=== PATIENT | male | born 1960 | race Caucasian/White ===

== ENCOUNTER 2016-11-11 16:56 | Emergency (ER) | payer OTHER ==
[2016-11-11 17:05] VITALS: BP 121/84
--- NOTE | 2016-11-11 18:05 | UC ---
Cardiac HPI - HPI Summary HPI Summary: pulling in right lateral ribs when reaching at work a few days ago--has continued pain---wants to be sure everything is ok - History of Current Complaint Chief Complaint: UCUpperExtremity Stated Complaint: RIB INJURY Time Seen by Provider: 11/11/16 18:03 Hx Obtained From: Patient Onset/Duration: Sudden Onset, Lasting Days - 5, Still Present Timing: Constant Initial Severity: Moderate Current Severity: Moderate Chest Pain Location: Right Lateral Aggravating: Exertion, Position Alleviating: Rest, OTC Meds Associated Signs & Symptoms: Positive: Negative - Allergy/Home Medications Allergies/Adverse Reactions: Allergies Allergy/AdvReac Type Severity Reaction Status Date / Time No Known Allergies Allergy Verified 11/11/16 17:05 Home Medications: Home Medications NK [No Home Medications Reported] 11/11/16 [History Confirmed 11/11/16] PMH/Surg Hx/FS Hx/Imm Hx Previously Healthy: Yes - Surgical History Surgical History: Yes Surgery Procedure, Year, and Place: appy,hernia - Family History Known Family History: Positive: None Family History: no cardio vascular issues reported in family lineage - Social History Occupation: Employed Full-time Lives: With Family Alcohol Use: None Substance Use Type: None Substance Use Comment - Amount & Last Used: drinks 3 cups of coffee daily Smoking Status (MU): Former Smoker Review of Systems Constitutional: Negative Skin: Negative Eyes: Negative ENT: Negative Respiratory: Negative Cardiovascular: Negative Gastrointestinal: Negative Genitourinary: Negative Motor: Negative Neurovascular: Negative Musculoskeletal: Arthralgia - right lateral ribs Neurological: Negative Psychological: Negative All Other Systems Reviewed And Are Negative: Yes Physical Exam Triage Information Reviewed: Yes Appearance: Well-Appearing, No Pain Distress, Well-Nourished Vital Signs: Initial Vital Signs Temp 97.9 F 11/11/16 17:04 Pulse 81 11/11/16 17:04 Resp 16 11/11/16 17:04 BP 121/84 11/11/16 17:04 Pulse Ox 97 11/11/16 17:04 Vital Signs Reviewed: Yes Eye Exam: Normal Eyes: Positive: Conjunctiva Clear ENT Exam: Normal ENT: Positive: Normal ENT inspection, Hearing grossly normal. Negative: Nasal congestion, Nasal drainage, Trismus, Muffled/hoarse voice Dental Exam: Normal Neck exam: Normal Neck: Positive: Supple, Nontender, No Lymphadenopathy Respiratory Exam: Normal Respiratory: Positive: Chest non-tender, No respiratory distress, No accessory muscle use Cardiovascular Exam: Normal Cardiovascular: Positive: RRR, No Murmur, Pulses Normal, Brisk Capillary Refill Abdominal Exam: Normal Abdomen Description: Positive: Nontender, No Organomegaly, Soft. Negative: CVA Tenderness (R), CVA Tenderness (L), Hepatomegaly Bowel Sounds: Positive: Present Musculoskeletal Exam: Normal Musculoskeletal: Positive: Strength Intact, ROM Intact, No Edema Neurological Exam: Normal Neurological: Positive: Alert Psychological Exam: Normal Skin Exam: Normal Diagnostics - Radiology No standard instances Xray Interpretation: No Acute Changes Radiology Interpretation Completed By: Radiologist - Assessment/Plan Course Of Treatment: ice, limit lifting, pain med, follow with pcp - Differential Diagnoses - Chest Pain Differential Diagnosis/HQI/PQRI: Chest Wall - Clinical Impression Provider Diagnoses: Chest wall pain, muscle strain Discharge - Discharge Plan Condition: Stable Disposition: HOME Patient Education Materials: Ibuprofen (By mouth), Ice Pack Application (ED), Rib Contusion (ED) Forms: *Work Release Referrals: Kirstin Pretty MD [Primary Care Provider] - If Needed
--- NOTE | 2016-11-11 18:42 | RAD ---
INDICATION: Right rib injury. TECHNIQUE: 4 views of the right ribs and dual-energy PA views of the chest were obtained. FINDINGS: No fracture or significant focal osseous abnormality is seen. The heart is within normal limits in size. The lungs are clear. There is no evidence for pneumothorax or pleural effusion. IMPRESSION: NO EVIDENCE FOR FRACTURE.
== END 2016-11-11 19:06 | disposition home or self-care (01) ==
LOC: UCEAST 16:56
DX: S29.011A Strain of muscle and tendon of front wall of thorax, initial encounter (principal); X50.1XXA Overexertion from prolonged static or awkward postures, initial encounter; Y93.9 Activity, unspecified; Y92.89 Other specified places as the place of occurrence of the external cause; Y99.0 Civilian activity done for income or pay; R07.89 Other chest pain; Z87.891 Personal history of nicotine dependence
CPT/HCPCS: 99211; G0463

== ENCOUNTER 2018-09-25 12:46 | Emergency (ER) | payer OTHER ==
--- NOTE | 2018-09-25 13:48 | ED ---
HPI Chest Pain - HPI Summary HPI Summary: This patient is a 58 year old M presenting to [facility] accompanied by his with a chief complaint of intermittent aching CP since 1 day ago. The patient rates the pain 0/10 in severity. Symptoms aggravated by nothing. Symptoms alleviated by nothing. Patient reports lightheadedness, nausea, SOB with exertion, and fatigue. The patient reports that he exercises 6 times per week and SOB with exertion is out of the ordinary for him. Patient takes Metformin and Lipitor daily. - History of Current Complaint Chief Complaint: EDChestPainROMI Time Seen by Provider: 09/25/18 13:39 Hx Obtained From: Patient Onset/Duration: Started Days Ago - 1 day, Atraumatic, Still Present Timing: Intermittent, Lasting Days - 1 day Initial Severity: Mild Current Severity: None Pain Intensity: 0 Pain Scale Used: 0-10 Numeric Chest Pain Radiates: No Character: Dull/Aching Aggravating Factor(s): Nothing Alleviating Factor(s): Nothing Associated Signs and Symptoms: Positive: Chest Pain, Shortness of Breath, Lightheadedness, Nausea, Other: - fatigue - Allergy/Home Medications Allergies/Adverse Reactions: Allergies Allergy/AdvReac Type Severity Reaction Status Date / Time No Known Allergies Allergy Verified 09/25/18 12:48 Home Medications: Home Medications Atorvastatin* [Lipitor*] 40 mg PO QPM 09/25/18 [History Confirmed 09/25/18] Metformin ER (NF) [Glucophage ER 750 MG TAB (NF)] 750 mg PO DAILY 09/25/18 [ History Confirmed 09/25/18] PMH/Surg Hx/FS Hx/Imm Hx Opthamlomology History: Denies: Hx Legally Blind EENT History: Denies: Hx Deafness - Surgical History Surgery Procedure, Year, and Place: appy,hernia Infectious Disease History: No Infectious Disease History: Denies: Hx Clostridium Difficile, Hx Hepatitis, Hx Human Immunodeficiency Virus (HIV), Hx of Known/Suspected MRSA, Hx Shingles, Hx Tuberculosis, Hx Known/ Suspected VRE, Hx Known/Suspected VRSA, History Other Infectious Disease, Traveled Outside the [place] in Last 30 Days - Family History Known Family History: Positive: Other - "heart issues" (father), pancreatic CA ( mother) Negative: Blood Disorder Family History: no cardio vascular issues reported in family lineage - Social History Alcohol Use: None Substance Use Type: Reports: None Substance Use Comment - Amount & Last Used: drinks 3 cups of coffee daily Smoking Status (MU): Former Smoker Review of Systems Positive: Fatigue Positive: Chest Pain Positive: Shortness Of Breath Positive: Nausea Neurological: Other - lightheadedness All Other Systems Reviewed And Are Negative: Yes Physical Exam - Summary Physical Exam Summary: Appearance: The patient is well-nourished in no acute distress and in no acute pain. Skin: The skin is warm and dry and skin color reflects adequate perfusion. HEENT: The head is normocephalic and atraumatic. The pupils are equal and reactive. The conjunctivae are clear and without drainage. Nares are patent and without drainage. Mouth reveals moist mucous membranes and the throat is without erythema and exudate. The external ears are intact. The ear canals are patent and without drainage. The tympanic membranes are intact. Neck: The neck is supple with full range of motion and non-tender. There are no carotid bruits. There is no neck vein distension. Respiratory: Chest is non-tender. Lungs are clear to auscultation and breath sounds are symmetrical and equal. Cardiovascular: Heart is regular rate and rhythm. There is no murmur or rub auscultated. There is no peripheral edema and pulses are symmetrical and equal. Abdomen: The abdomen is soft and non-tender. There are normal bowel sounds heard in all four quadrants and there is no organomegaly palpated. Musculoskeletal: There is no back tenderness noted. Extremities are non-tender with full range of motion. There is good capillary refill. There is no peripheral edema or calf tenderness elicited. Neurological: Patient is alert and oriented to person, place and time. The patient has symmetrical motor strength in all four extremities. Cranial nerves are grossly intact. Deep tendon reflexes are symmetrical and equal in all four extremities. Psychiatric: The patient has an appropriate affect and does not exhibit any anxiety or depression. Triage Information Reviewed: Yes Vital Signs On Initial Exam: Initial Vitals Temp Pulse Resp BP Pulse Ox 96.6 F 63 14 136/69 97 09/25/18 12:48 09/25/18 12:48 09/25/18 12:48 09/25/18 12:48 09/25/18 12:48 Vital Signs Reviewed: Yes Diagnostics - Vital Signs Vital Signs Temp Pulse Resp BP Pulse Ox 04/21/19 12:48 96.6 F 63 14 136/69 97 - Laboratory Result Diagrams: 09/25/18 14:02 09/25/18 14:02 Lab Statement: Any lab studies that have been ordered have been reviewed, and results considered in the medical decision making process. - Radiology CXR Radiology Interpretation Completed By: Radiologist Summary of Radiographic Findings: No active cardiopulmonary disease. Dr. Franklin has reviewed this report. - EKG 12:56 Cardiac Rate: NL - at 61 bpm EKG Rhythm: Sinus Rhythm Summary of EKG Findings: sinus rhythm at 61 bpm Chest Pain Course/Dx - Course Course Of Treatment: Mr. Hammer presents complaining of an intermittent right- sided chest pain for about the last day or so. He has a pretty active life. He exercises frequently and his job involves lifting heavy boxes fairly frequently. He has not noticed a correlation between his physical activity and the chest pain however he did notice an episode of climbing up the stairs and feeling short of breath. He climbs up a lot of stairs at work and normally does not feel short of breath. He was nontoxic in appearance with stable vital signs on presentation. He was kept on a monitor and evaluated with a delayed troponin and d-dimer as well as EKG and chest x-ray. Everything was negative. We talked about the unknown etiology of his symptoms and the fact that nothing acutely dangerous is happening at this time however that does not rule out the possibility that this is a cardiac event. I recommended that he take it easy and that if he has symptoms recur with exertion that he should stop immediately and return to the emergency department. Otherwise he is to follow-up with his PCP Dr. Pretty this week. - Diagnoses Provider Diagnoses: Chest pain Discharge - Sign-Out/Discharge Documenting (check all that apply): Patient Departure - discharge home Patient Received Moderate/Deep Sedation with Procedure: No - Discharge Plan Condition: Stable Disposition: HOME Patient Education Materials: Chest Pain (ED) Referrals: Kirstin Pretty MD [Primary Care Provider] - 1 Day Additional Instructions: Follow up with your primary care physician in 1-2 days. Return to the emergency with any new or worsening symptoms. - Billing Disposition and Condition Condition: STABLE Disposition: Home - Attestation Statements Document Initiated by Scribe: Yes Documenting Scribe: Megha [place] Provider For Whom Scribe is Documenting (Include Credential): Eyal Franklin MD Scribe Attestation: I, Megha Merino, scribed for Eyal Franklin MD on 09/25/18 at 1759. Scribe Documentation Reviewed: Yes Provider Attestation: The documentation as recorded by the scribe, Megha Merino accurately reflects the service I personally performed and the decisions made by me, Eyal Franklin MD Status of Scribe Document: Viewed
[2018-09-25 14:10] LABS: ABS Basophils 0.1 10^3/ul (0-0.2); ABS Eosinophils 0.5 10^3/ul (0-0.6); ABS Lymphocytes 2.1 10^3/ul (1.0-4.8); ABS Monocytes 0.6 10^3/ul (0-0.8); ABS Neutrophils 3.5 10^3/ul (1.5-7.7); ABS Nucleated RBC 0 10^3/ul; Eosinophil % 7.5 %; Hematocrit 43 % (36-46); Hemoglobin 14.4 g/dL (14.0-18.0); Lymphocyte % 30.8 %; Mean Corpuscular HGB Conc 34 g/dL (31-36); Mean Corpuscular Hemoglobin 32 pg (27-31); Mean Corpuscular Volume 95 fL (80-94); Mean Platelet Volume 7.7 fL (7.4-10.4); Nucleated Red Blood Cells % 0.1; Platelet Count 267 10^3/uL (150-450); Red Blood Count 4.49 10^6 /uL (4.18-5.48); Red Cell Distribution Width 13 % (10.5-15); White Blood Count 6.8 10^3/uL (3.5-10.8)
[2018-09-25 14:17] LABS: INR 0.94 (0.77-1.02)
[2018-09-25 14:26] LABS: Albumin 3.9 g/dL (3.2-5.2); Albumin/Globulin Ratio 1.3 (1-3); BUN/Creatinine Ratio 18.3 (8-20); Calcium 9.4 mg/dL (8.6-10.3); EGFR African American 100.3 (>60); EGFR Non-African American 82.9 (>60); Total Bilirubin 0.5 mg/dL (0.2-1.0); Total Protein 6.9 g/dL (6.4-8.9)
[2018-09-25 15:06] LABS: Potassium 4.1 mmol/L (3.5-5.0)
[2018-09-25 15:35] LABS: TSH (Thyroid Stimulating Horm) 1.2 mcIU/mL (0.34-5.60)
[2018-09-25 17:58] VITALS: BP 109/63
== END 2018-09-25 17:58 | disposition home or self-care (01) ==
LOC: ED 12:46
DX: R07.9 Chest pain, unspecified (principal); Z87.891 Personal history of nicotine dependence
CPT/HCPCS: 36415; 71045; 80053; 83605; 83880; 84443; 84484; 85025; 85379; 85610; 93005; 99283

== ENCOUNTER 2019-05-13 14:48 | Emergency (ER) | payer OTHER ==
--- OUTSIDE RECORDS SUMMARY | 2019-05-13 14:54 | XMS REPORT | Continuity of Care Document ---
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 stairs daily for job. Allergies, Adverse Reactions, Alerts Description No Known Drug Allergies Medications Active Medications SIG Qnty Indications Ordering Provider Date Freestyle [place] test 2 times 1units Isaiah Joshua MD 08/22/2018 Lite daily dx:e11.9 W/Device Kit Freestyle Lite Test test blood 100units Isaiah Joshua MD 08/22/2018 sugar 3 times Strips daily and as needed Metformin HCL ER hold on file, 90tabs R73.03 Isaiah Joshua MD 08/17/2018 750mg take 1 tablet Tablets ER 24HR by mouth daily Accucheck Lancets R73.03 Isaiah Joshua MD 08/17/2018 Lancet Device once daily 50units R73.03 Isaiah Joshua MD 08/17/2018 Misc Atorvastatin Calcium 1 by mouth Unknown every day 40mg Tablets Multivitamin Men take 1 tablet Unknown by mouth one Tablets time a day Vitamin C Immune 1 daily Unknown Health 500mg Chewtabs Immunizations Description No Information Available Vital Signs Date Vital Result Comment 05/10/2019 4:13pm Height 69 inches 5'9" Weight 162.00 lb w/ shoes Heart Rate 78 /min BP Systolic Sitting 110 mmHg BP Diastolic Sitting 68 mmHg BMI (Body Mass Index) 23.9 kg/m2 08/17/2018 4:14pm Height 69 inches 5'9" Weight 165.00 lb w/ shoes Heart Rate 70 /min BP Systolic Sitting 109 mmHg BP Diastolic Sitting 61 mmHg BMI (Body Mass Index) 24.4 kg/m2 Results Description No Information Available Procedures Description No Information Available Medical Devices Description No Information Available Encounters Description No Information Available Assessments Date Code Description Provider 05/10/2019 R73.03 Prediabetes Isaiah Joshua MD 05/10/2019 E78.5 Hyperlipidemia, unspecified Isaiah Joshua MD Plan of Treatment No Information Available Functional Status Description No Information Available Mental Status Description No Information Available Referrals Description No Information Available
[2019-05-13 15:32] VITALS: BP 114/72
--- NOTE | 2019-05-13 16:39 | UC ---
Back Pain HPI - HPI Summary HPI Summary: 6 DAYS AGO PATIENT BENT OVER TO [employer]ACK[employer] HIS SMALL DOG. THE DOG MOVED AND WHEN THE PATIENT LUNGED AFTER HIM HE STRAINED HIS LOW BACK. HE HAS CONTINUED TO WORK AND HAS A PHYSICALLY DEMANDING JOB. THE PAIN HAS BEEN PERSISTENT. IBUPROFEN HELPS. HE DENIES ANY NUMBNESS/TINGLING. NO SADDLE ANESTHESIA. NO LOSS OF BOWEL OR BLADDER CONTROL. - History of Current Complaint Chief Complaint: UCBackPain Stated Complaint: BACK PAIN Time Seen by Provider: 05/13/19 16:10 Hx Obtained From: Patient Onset/Duration: Sudden Onset, Lasting Days, Still Present Timing: Constant Severity Initially: Moderate Severity Currently: Moderate Pain Intensity: 5 Pain Scale Used: 0-10 Numeric Back Pain: Is Discrete @ - LOW BACK Character: Sharp Aggravating Factor(s): Movement Alleviating Factor(s): Rest, OTC Meds - IBUPROFEN Associated Signs And Symptoms: Positive: Negative - Allergies/Home Medications Allergies/Adverse Reactions: Allergies Allergy/AdvReac Type Severity Reaction Status Date / Time No Known Allergies Allergy Verified 05/13/19 15:32 PMH/Surg Hx/FS Hx/Imm Hx Endocrine History: Diabetes - "PRE", Dyslipidemia - Surgical History Surgical History: Yes Surgery Procedure, Year, and Place: Appy,[place]ernia - Family History Known Family History: Positive: Other - "heart issues" (father), pancreatic CA ( mother) Negative: Blood Disorder Family History: no cardio vascular issues reported in family lineage - Social History Alcohol Use: None Substance Use Type: None Substance Use Comment - Amount & Last Used: drinks 3 cups of coffee daily Smoking Status (MU): Former Smoker Review of Systems All Other Systems Reviewed And Are Negative: Yes Constitutional: Positive: Negative Skin: Positive: Negative Respiratory: Positive: Negative Cardiovascular: Positive: Negative Gastrointestinal: Positive: Negative Musculoskeletal: Positive: Decreased ROM, Myalgia Physical Exam Triage Information Reviewed: Yes Appearance: Well-Appearing, Well-Nourished, Pain Distress - MILD Vital Signs: Initial Vital Signs Temp 97.8 F 05/13/19 15:28 Pulse 69 05/13/19 15:28 Resp 16 05/13/19 15:28 BP 114/72 05/13/19 15:28 Pulse Ox 97 05/13/19 15:28 Vital Signs Reviewed: Yes Eyes: Positive: Conjunctiva Clear ENT: Positive: Hearing grossly normal Neck: Positive: Supple Respiratory: Positive: No respiratory distress, No accessory muscle use Cardiovascular: Positive: Pulses Normal Abdomen Description: Positive: Soft Musculoskeletal: Positive: No Edema, ROM Limited @ - BACK, Other: - NO TENDERNESS OVER BONY PROMINENCES OR SOFT TISSUES OF LOW BACK Neurological: Positive: Alert Psychological: Positive: Age Appropriate Behavior Skin: Negative: Rashes Back Pain Course/Dx - Course Course Of Treatment: PATIENT WITH LIKELY LOW BACK MUSCLE STRAIN AFTER LUNGING AFTER HIS DOG 6 DAYS AGO. WILL TREAT WITH MUSCLE RELAXER AND IBUPROFEN. ADVISED HEAT AND SLOW STRETCHING/RANGE OF MOTION EXERCISES. PT DECLINES XRAYS TODAY WHICH I THINK IS REASONABLE. HE WILL GO TO THE ER WITHOUT FAIL IF HIS SYMPTOMS WORSEN. HE HAS AN APPOINTMENT WITH HIS PCP IN 4 DAYS. IF HIS SYMPTOMS WORSEN HE MAY BENEFIT FROM IMAGING. - Differential Dx/Diagnosis Provider Diagnosis: Low back strain Discharge ED - Sign-Out/Discharge Documenting (check all that apply): Patient Departure All imaging exams completed and their final reports reviewed: No Studies - Discharge Plan Condition: Stable Disposition: HOME Prescriptions: Cyclobenzaprine TAB* [Flexeril TAB*] 10 mg PO BID PRN #30 tab PRN Reason: Pain Ibuprofen TAB* [Motrin TAB* 600 MG] 1 tab PO Q6H PRN #30 tab PRN Reason: Pain Patient Education Materials: Low Back Strain (ED) Forms: *Work Release Referrals: Kirstin Pretty MD [Primary Care Provider] - If Needed Additional Instructions: YOUR SYMPTOMS SHOULD IMPROVE SIGNIFICANTLY OVER THE NEXT 1-2 WEEKS. IF YOU DO NOT IMPROVE EXPECTED FOLLOW-UP WITH YOUR PCP. YOU MAY BENEFIT FROM IMAGING AT THAT TIME. REST. IBUPROFEN NEEDED FOR DISCOMFORT. TAKE MUSCLE RELAXER BEFORE BED. BE SURE TO GO THROUGH SLOW RANGE OF MOTION AND STRETCHING EXERCISES DAILY YOU ARE ABLE TO PREVENT STIFFENING UP AND MAKING THE DISCOMFORT WORSE. GO TO THE ED WITHOUT FAIL IF YOU DEVELOP NUMBNESS/TINGLING IN YOUR LEGS, NUMBNESS IN THE GENITAL REGION, LOSS OF BOWEL/BLADDER CONTROL, INTOLERABLE PAIN OR ANY OTHER CONCERNING SYMPTOMS. - Billing Disposition and Condition Condition: STABLE Disposition: Home
== END 2019-05-13 16:38 | disposition home or self-care (01) ==
LOC: UCEAST 14:48
DX: S39.012A Strain of muscle, fascia and tendon of lower back, initial encounter (principal); Z87.891 Personal history of nicotine dependence; X58.XXXA Exposure to other specified factors, initial encounter; Y93.89 Activity, other specified; Y92.9 Unspecified place or not applicable
CPT/HCPCS: 99212; G0463